=== PATIENT | female | born 1960 | race Caucasian/White ===

== ENCOUNTER → 2017-01-03 | Outpatient (CLI) | payer BC ==
[~2017-01-03] MED LIST: ALBU8.5H4 IH; FLUT1DIS3 IH; LEVO50TA PO; METO-272 PO; NF-FLON16G NS; SERT50TA2 PO; SIMV10TA PO; [UNRECOGNIZED DRUG - CODE] PO
--- NOTE | 2017-01-04 14:29 | Diagnostic Imaging Report ---
INDICATION: Screening mammogram. COMPARISON: Filmscreen mammograms from 2001 and 2008. FAMILY HISTORY: Reportedly positive in mother and sister. TECHNIQUE: Bilateral digital mammography was performed with computer assisted detection (CAD) software utilization. PERSONAL HISTORY: There are no reported clinical signs and/or symptoms of breast cancer. FINDINGS: The breast tissue pattern is composed mostly of fat tissue with scattered fibroglandular densities. RIGHT BREAST: No dominant mass, suspicious microcalcification, or other significant abnormality is identified. LEFT BREAST: No architectural distortion, dominant mass, or suspicious calcification is identified. IMPRESSION: 1. Negative for malignancy. Followup mammography in one year is recommended. 2. Consider MRI screening. ACR BI-RADS Category 1: Negative Result letter will be mailed to the patient. Note: At least 10% of breast cancer is not imaged by mammography. Dictated by: Dictated on workstation # [id number]
== END ==
LOC: RAD 09:45
PROVIDERS: ATTEND Family Medicine
DX: Z12.31 Encounter for screening mammogram for malignant neoplasm of breast (principal)